=== PATIENT | female | born 1975 | race Hispanic/Latino ===

== ENCOUNTER 2018-12-12 16:36 | Emergency (ER) | payer BC, OTHER ==
[2018-12-12] MEDS ORDERED: ACETAMINOPHEN EXTRA STRENGTH 500 MG TABLET ONE (16:55)
[2018-12-12] MEDS ORDERED: LIDOCAINE 5% TOPICAL PATCH TP ONE (16:55)
[2018-12-12] MEDS ORDERED: DIAZEPAM 5 MG TABLET ONE (16:56)
== END 2018-12-12 18:12 | disposition home or self-care (01) ==
LOC: EDH 16:36
DX: S39.012A Strain of muscle, fascia and tendon of lower back, initial encounter (principal); Z98.890 Other specified postprocedural states; W18.39XA Other fall on same level, initial encounter; Y93.01 Activity, walking, marching and hiking; Y92.89 Other specified places as the place of occurrence of the external cause; Y99.8 Other external cause status
CPT/HCPCS: 72100